=== PATIENT | female | born 1990 | race Caucasian/White ===

== ENCOUNTER 2023-11-05 18:54 | Emergency (ER) | payer BC, SELFPAY ==
[2023-11-05 18:56] VITALS: BP 136/86; PULSE 68; RESP 18; TEMP 35.7; O2SAT 99
--- NOTE | 2023-11-05 19:03 | ED.GENADULT ---
HPI - General Adult General Chief complaint: Laceration/Wound Stated complaint: L arm lac Time Seen by Provider: 11/05/23 18:55 History of Present Illness HPI narrative: 1840- putting away groceries and lt arm went into knife 33-year-old woman presenting to the emergency department after cutting her left arm while putting away groceries. Apparently a knife had been left in the drying rack point up. Moving quickly due to rain was putting to bags away when caught her left arm on a knife. Knife just been cleaned as noted. They noted to have they think exposed muscle. No peripheral loss of sensation or function. Related Data Home Medications ?Medication ?Instructions ?Recorded ?Confirmed albuterol sulfate 90 mcg/actuation inhalation 11/05/23 aerosol inhaler (Ventolin HFA) cetirizine 10 mg tablet mg 11/05/23 dextroamphetamine-amphetamine ER PO 11/05/23 20 mg 24hr capsule,extend release (Adderall XR) ipratropium 20 mcg-albuterol 100 inhalation 11/05/23 mcg/actuation mist for inhalation (Combivent Respimat) montelukast 10 mg tablet mg 11/05/23 Allergies Allergy/AdvReac Type Severity Reaction Status Date / Time amoxicillin Allergy Verified 11/05/23 19:01 cefaclor [From Ceclor] Allergy Verified 11/05/23 19:01 Review of Systems Status of ROS: Reports: 6 or more systems reviewed and unremarkable except as noted in History and below [facility] Social History Smoking Status: Never smoker Do you use any of these nicotine containing products: None How often do you have a drink containing alcohol: monthly or less AUDIT-C Alcohol total score: 1 Non-prescribed substance use: denies use service: No Exam Narrative: Exam Narrative: Wrapped in paper towel with overlying athletic tape is the left proximal forearm. Favoring this arm understandably. Not particularly distressed. Sensation appears to be intact. Open closing hand without difficulty. Removing the dressing. There is some blood soaked into a paper towel. There is an inch and half long gapping laceration with flexion of the elbow on the dorso-volar foot proximal forearm. Clean laceration. Will need repair Const: Vital Signs, click to edit/add: Vital Signs - 24 hr 11/05/23 18:56 Temperature 96.3 F L Pulse Rate [Pulse Oximeter] 68 Respiratory Rate 18 Blood Pressure [Ri ght Upper Arm] 136/86 Pulse Oximetry 99 Oxygen Delivery Me thod Room Air Documenting provider has reviewed patient's vital signs: yes Course Vital Signs Vital signs: Initial Vital Signs Temperature 96.3 F L 11/05/23 18:56 Temperature Source Temporal Artery Scan 11/05/23 18:56 Pulse Rate 68 11/05/23 18:56 Respiratory Rate 18 11/05/23 18:56 Blood Pressure 136/86 11/05/23 18:56 Blood Pressure Mean 102 11/05/23 18:56 Blood Pressure Position Sitting 11/05/23 18:56 Pulse Oximetry 99 11/05/23 18:56 Oxygen Delivery Method Room Air 11/05/23 18:56 Vital Signs Temperature 96.3 F L 11/05/23 18:56 Pulse Rate 68 11/05/23 18:56 Respiratory Rate 18 11/05/23 18:56 Blood Pressure 136/86 11/05/23 18:56 Pulse Oximetry 99 11/05/23 18:56 Oxygen Delivery Method Room Air 11/05/23 18:56 Temperature 96.3 F L 11/05/23 18:56 Pulse Rate 68 11/05/23 18:56 Respiratory Rate 18 11/05/23 18:56 Blood Pressure 136/86 11/05/23 18:56 Pulse Oximetry 99 11/05/23 18:56 Oxygen Delivery Method Room Air 11/05/23 18:56 Medications Administered Medications: Discontinued Medications Generic Name Dose Route Start Last Admin Trade Name Freq PRN Reason Stop Dose Admin Lidocaine/Epinephrine 10 ml 11/05/23 19:29 11/05/23 19:34 Lidocaine 1%-Epi 1:100,000 10 Ml INFILTRATI 11/05/23 19:30 10 ml ONCE ONE Administration Medical Decision Making MDM Narrative Medical decision making narrative: I would recommend suturing here. Is under stress from flexion of the forearm/elbow. Appears to be clean otherwise. Will explore further with anesthesia. Does not appear to have sustained other/deeper injury. Returned to anesthetize lidocaine with epinephrine. 2 mL in total injected with very good wound anesthesia. Cleansed with Shur-Clens equivalent solution. I do not see fascial layer disruption. Can be closed with superficials Sutured with combination of horizontal mattress and interrupted 5 O Ethilon suture Good wound approximation and controlled bleeding. Antibiotic ointment and Band-Aid applied See patient discharge plan for further discussion Discharge Plan Discharge Clinical Impression: Laceration Patient Disposition: Home w/ Parent or Adult Condition: Improved Additional Instructions: sutures out in 10 - 12 days. antibiotic ointment for 5 - 6 days and then to a dry dressing. ok to get wet but try not to soak while sutures are in. for further scar reduction/wound healing... if desired -- after the scab falls off, can apply daily vitamin e oil or something like maderma or silicone-containing ointments or bandaids daily. especially protect from sun exposure for the first 9 - 12 months. Watch for spreading redness after 2 days accompanied by heat, swelling, marked increase in pain, purulent drainage. Prescriptions: No Action cetirizine 10 mg tablet Patient Comments: [NO ORIGINAL SIG] dextroamphetamine-amphetamine [Adderall XR] 20 mg capsule,extended release 24hr PO Patient Comments: [NO ORIGINAL SIG] montelukast 10 mg tablet Patient Comments: [NO ORIGINAL SIG] albuterol sulfate [Ventolin HFA] 90 mcg/actuation HFA aerosol inhaler INHALATION Patient Comments: INHALE 1 TO 2 PUFFS BY MOUTH EVERY 4 HOURS NEEDED FOR WHEEZING Combivent Respimat 20-100 mcg/actuation mist INHALATION Patient Comments: INHALE 1 PUFF BY MOUTH FOUR TIMES DAILY Follow Up/Referrals: Provider,Not a Local [Primary Care Provider] - Stand Alone Forms: [employer] Info Instructions
== END 2023-11-05 20:05 | disposition home or self-care (01) ==
PROVIDERS: Emergency Provider Family Medicine
DX: S51.812A Laceration without foreign body of left forearm, initial encounter (principal)
CPT/HCPCS: 12001; 99283; 99284